=== PATIENT | female | born 1990 | race Caucasian/White ===

== ENCOUNTER 2016-08-14 19:53 | Emergency (ER) | payer SELFPAY ==
[~2016-08-14] VITALS: Ht 152.4 cm; Wt 57.0 kg
[~2016-08-14 19:53] MED LIST: AMBIEN 5MG TABLE5 MG PO; AMOXICILLIN 50500 MG PO; ANTIVERT 25MG25 MG PO; BACTRIM DS 8001 TAB PO; CEPHALEXIN500 M1 PO; CIPRO 500MG TA500 MG PO; CLEOCIN HCL300 MG PO; DEPRESSION MED; DOXYCYCLINE 10100 MG PO; EC NAPROSYN500 MG PO; FLEXERIL 1010 MG/TAB PO; FLINTSTONES W/I1 CTB PO; MOTRIN 600600 MG/TAB PO; MOTRIN 800800 MG/TAB PO; NO HOME MEDICATIONS; NORCO 325 MG-51 TAB PO; PAXIL 10MG10 MG PO; PERCOCET 325 MG1 TA2 PO; PHENERGAN25 MG RC; PRENTAL 1 PLUS1 TAB PO; PRILOSEC 20MG20 MG PO; SENOKOT S 50 MG1 TAB PO; TRI-SPRINTEC 281 TAB PO; ULTRAM 50MG TAB50 MG PO; VOLTAREN 75 DR75 MG PO; ZITHROMAX Z PA250 MG PO; ZOFRAN 4MG T4 MG/TAB PO
[2016-08-14 19:58] VITALS: TEMP 98.2
[2016-08-14 22:46] LABS: PH 6 (5-8); URINE APPEARANCE Hazy; URINE BACTERIA None Seen /hpf; URINE BILIRUBIN Negative (NEGATIVE); URINE BLOOD Negative (NEGATIVE); URINE COLOR Yellow; URINE GLUCOSE Negative (NEGATIVE); URINE KETONE Negative (NEGATIVE); URINE RBC 0-2 /hpf; URINE UROBILINOGEN Negative (NEGATIVE); URINE WBC 0-2 /hpf
[2016-08-14 23:06] VITALS: BP 118/68; PULSE 74
== END 2016-08-14 23:07 | disposition home or self-care (01) ==
LOC: COL.ER 19:53
PROVIDERS: Nurse Practitioner
DX: M54.5 Low back pain (principal); G89.29 Other chronic pain
CPT/HCPCS: J1885; J2360

== ENCOUNTER → 2017-01-14 | Outpatient (CLI) | payer OTHER | LOC: COL.RAD 09:28 | DX: M43.17 Spondylolisthesis, lumbosacral region (principal); M47.816 Spondylosis without myelopathy or radiculopathy, lumbar region; Z90.49 Acquired absence of other specified parts of digestive tract | CPT/HCPCS: Q9967 ==

== ENCOUNTER 2017-02-15 16:38 | Emergency (ER) | payer OTHER ==
[~2017-02-15] VITALS: Ht 152.4 cm; Wt 55.7 kg
[2017-02-15 16:50] VITALS: TEMP 98.5
[2017-02-15 20:10] VITALS: BP 110/57; PULSE 65
[2017-02-15] MEDS ORDERED: NORCO 325 MG-51 TAB PO (20:10)
== END 2017-02-15 20:24 | disposition home or self-care (01) ==
LOC: COL.ER 16:38
DX: M43.16 Spondylolisthesis, lumbar region (principal); F17.210 Nicotine dependence, cigarettes, uncomplicated

== ENCOUNTER 2017-06-24 16:32 | Emergency (ER) | payer SELFPAY ==
[~2017-06-24] VITALS: Ht 152.4 cm; Wt 59.1 kg
[2017-06-24 16:38] VITALS: BP 132/85; PULSE 96; TEMP 97.9
[2017-06-24] MEDS ORDERED: ILOTYCIN5 MG/GM OP (17:12)
[2017-06-24] MEDS ORDERED: POLYMYXIN B/TRIMETH OD (17:50)
== END 2017-06-24 17:22 | disposition home or self-care (01) ==
LOC: COL.ER 16:32
DX: H57.12 Ocular pain, left eye (principal); H01.006 Unspecified blepharitis left eye, unspecified eyelid; F17.210 Nicotine dependence, cigarettes, uncomplicated

== ENCOUNTER 2017-07-16 08:32 | Outpatient (CLI) | payer OTHER ==
[2017-07-16] VITALS (9 sets, daily range): BP systolic 95–118; BP diastolic 59–75; PULSE 49–82
[~2017-07-16] VITALS: Ht 152.4 cm; Wt 58.1 kg
[~2017-07-16 08:32] MED LIST changes: +ILOTYCIN5 MG/GM OP; +POLYMYXIN B/TRIMETH OD
== END 2017-07-16 12:05 | disposition home or self-care (01) ==
LOC: COL.RAD 08:32
DX: M43.17 Spondylolisthesis, lumbosacral region (principal); M43.06 Spondylolysis, lumbar region; M51.27 Other intervertebral disc displacement, lumbosacral region; M48.061 Spinal stenosis, lumbar region without neurogenic claudication
CPT/HCPCS: Q9967

== ENCOUNTER 2020-02-04 13:22 | Outpatient (CLI) | payer BC ==
[2020-02-04 13:53] VITALS: BP 108/58; PULSE 89; TEMP 98.4
--- NOTE | 2020-02-04 13:54 | NUR ---
1330 PATIENT HERE FOR COMPLAINTS HAVE NOT FELT BABY MOVE SINCE THIS MORNING. STATES DOCTORS IN [place] AND IS 16 WEEKS WITH EDC 07/22/2019. DENIES HAVING ANY COMPLICATIONS WITH THIS . DOPPLAR FHT 142 BABY MOVING DURING DOPPLAR AND PATIENTS STATES SHE FELT BABY KICK AT THIS TIME. DR STORM CALLED AND UPDATED ON ALL ABOVE INFORMATION. ORDERS TO DISMISS PATIENT TO HOME. 1345 DOPPLAR FHT 140. ALL DISCHARGE INSTRUCTIONS GIVEN TO PATIENT WITH VERBAL UNDERSTANING. PATIENT DISMISSED AT THIS TIME
== END 2020-02-04 13:45 | disposition home or self-care (01) ==
LOC: COL.ER 13:22 → LDRO 13:22 → EDSTATUS 13:26 → LDR 13:30 → LDRO 13:45
DX: Z34.92 Encounter for supervision of normal pregnancy, unspecified, second trimester (principal); Z3A.16 16 weeks gestation of pregnancy
CPT/HCPCS: OP

== ENCOUNTER 2023-02-26 13:13 | Outpatient (RCR) | payer MEDICAID ==
[~2023-02-26 13:13] MED LIST changes: +PEPCID 20MG TAB20 MG PO
== END 2023-02-26 13:14 | disposition home or self-care (01) ==
LOC: MKS.ESL.PT 13:13
DX: M54.41 Lumbago with sciatica, right side (principal); M54.42 Lumbago with sciatica, left side

== ENCOUNTER 2024-02-15 21:53 | Emergency (ER) | payer OTHER ==
[~2024-02-15] VITALS: Ht 152.4 cm; Wt 73.6 kg
[2024-02-15 22:02] VITALS: TEMP 98.1
[2024-02-16 00:34] LABS: BASO % 0.3 % (0.0-2.0); EOS # 0.6 K/mm3 (0.0-0.7); EOS % 4.3 % (0.0-4.0); GRAN # 8.9 K/mm3 (1.4-6.5); GRAN % 64.8 % (42.2-75.2); HEMATOCRIT 39.6 % (37.0-47.0); HEMOGLOBIN 12.8 g/dl (12.5-16.0); LYMPH # 3.3 K/mm3 (1.2-3.4); LYMPH % 24.2 % (20.0-51.0); MEAN CELL VOLUME 93 fl (80.0-100.0); MEAN CORPUSCULAR HEMOGLOBIN 30 pg (27-31); MEAN CORPUSCULAR HGB CONC 32 g/dl (33.0-37.0); MEAN PLATELET VOLUME 10.4 fl (7.4-10.4); MONO # 0.8 K/mm3 (0.1-0.6); RED BLOOD COUNT 4.27 M/mm3 (4.10-5.30); REDCELL DISTRIBUTION WIDTH-CV 13.4 % (11.5-14.5)
[2024-02-16 01:17] LABS: PLATELET COUNT 232 K/mm3 (130-400)
[2024-02-16 01:55] VITALS: BP 120/59; PULSE 65
== END 2024-02-16 01:55 | disposition home or self-care (01) ==
LOC: COL.ER 21:53
PROVIDERS: Nurse Practitioner Primary Care
DX: N93.9 Abnormal uterine and vaginal bleeding, unspecified (principal)